=== PATIENT | female | born 1985 | race Two or more races ===

== ENCOUNTER 2022-04-09 23:14 | Emergency (ER) | payer BC ==
[~2022-04-09] VITALS: Ht 157.5 cm; Wt 56.7 kg
[2022-04-10 00:47] LABS: Urine Bacteria FEW /hpf (None Seen); Urine Blood Negative /uL (Negative); Urine Specific Gravity 1.002 (1.001-1.035); Urine WBC 9 /hpf (0 - 5)
[2022-04-10 01:42] LABS: Albumin 4.1 g/dL (3.4-5.0); BUN/Creatinine Ratio 18.9; Magnesium 2.3 mg/dL (1.6-2.6); Potassium 3.1 mmol/L (3.5-5.1)
[2022-04-10 01:45] LABS: Bilirubin, Total 0.5 mg/dL (0.2-1.0); Total Protein 7.9 g/dL (6.4-8.2)
[2022-04-10] MEDS ORDERED: NITR-87 PO (01:53)
[2022-04-10 02:14] LABS: Basophils # (auto) 0 10 ^3/uL (0-0.2); Basophils % (auto) 0.4 % (0.0-2.0); Eosinophils # (auto) 0.2 10 ^3/uL (0-0.8); Eosinophils % (auto) 1.8 % (0.0-7.0); Hematocrit 40.5 % (36.0-46.0); Hemoglobin 14.4 g/dL (12.2-16.2); Lymphocytes # (auto) 2.6 10 ^3/uL (0.4-5.4); Lymphocytes % (auto) 27.3 % (10.0-50.0); Mean Corpuscular Hemoglobin 29.8 pg (28.0-32.0); Mean Corpuscular Hgb Conc. 35.5 g/dL (32.0-36.0); Monocytes # (auto) 0.6 10 ^3/uL (0-1.3); Monocytes % (auto) 6.2 % (0.0-12.0); Neutrophils # (auto) 6.2 10 ^3/uL (1.6-8.6); Neutrophils % (auto) 64.3 % (37.0-80.0); Red Blood Cells 4.81 10^6/uL (4.0-5.20); Red Cell Distribution Width 12.5 % (11.8-14.3); White Blood Cell 9.6 10^3/uL (4.4-10.8)
[2022-04-10 02:15] VITALS: BP 139/86
[2022-04-10] MEDS ORDERED: POTASSIUM EFFERVESENT TAB 25 MEQ PO ONE (02:45)
== END 2022-04-10 03:33 | disposition home or self-care (01) ==
LOC: ER 23:14
DX: R07.89 Other chest pain (principal); N39.0 Urinary tract infection, site not specified; E87.6 Hypokalemia; I10 Essential (primary) hypertension
CPT/HCPCS: 36415; 80053; 81001; 83735; 83880; 84443; 84484; 85025; 93005

== ENCOUNTER 2022-04-20 18:12 | Emergency (ER) | payer BC, MEDICAID ==
[~2022-04-20] VITALS: Ht 157.5 cm; Wt 56.7 kg
[~2022-04-20 18:12] MED LIST: NITR-87 PO
[2022-04-20] MEDS ORDERED: ASPirin 81 mg TAB PO ONE (20:30)
[2022-04-20] MEDS ORDERED: cloNIDine HCL 0.1 MG TAB PO ONE ×2 (20:30)
[2022-04-20 20:51] LABS: Basophils # (auto) 0 10 ^3/uL (0-0.2); Basophils % (auto) 0.6 % (0.0-2.0); Eosinophils # (auto) 0 10 ^3/uL (0-0.8); Eosinophils % (auto) 0.3 % (0.0-7.0); Hematocrit 38.8 % (36.0-46.0); Hemoglobin 13.7 g/dL (12.2-16.2); Lymphocytes # (auto) 0.9 10 ^3/uL (0.4-5.4); Lymphocytes % (auto) 17.5 % (10.0-50.0); Mean Corpuscular Hemoglobin 29.8 pg (28.0-32.0); Mean Corpuscular Hgb Conc. 35.4 g/dL (32.0-36.0); Mean Corpuscular Volume 84.3 fL (80.0-100.0); Monocytes # (auto) 0.7 10 ^3/uL (0-1.3); Monocytes % (auto) 12.6 % (0.0-12.0); Neutrophils # (auto) 3.7 10 ^3/uL (1.6-8.6); Nucleated Red Blood Cells % 0.1 %; Red Cell Distribution Width 12.7 % (11.8-14.3); White Blood Cell 5.4 10^3/uL (4.4-10.8)
[2022-04-20 21:05] LABS: Albumin 3.8 g/dL (3.4-5.0); Calcium 8.4 mg/dL (8.5-10.1)
[2022-04-20 21:16] LABS: BUN/Creatinine Ratio 18.5; Bilirubin, Total 0.4 mg/dL (0.2-1.0); Total Protein 7.9 g/dL (6.4-8.2)
[2022-04-20 21:28] LABS: Potassium 2.5 mmol/L (3.5-5.1)
[2022-04-20] MEDS ORDERED: POTASSIUM CHL 20 Meq TABLET PO ONE (21:30)
[2022-04-20] MEDS ORDERED: POTA10TA51 PO (21:34)
[2022-04-20 22:33] LABS: Urine Bacteria NONE SEEN /hpf (None Seen); Urine Blood Negative /uL (Negative); Urine Specific Gravity 1.012 (1.001-1.035); Urine WBC 2 /hpf (0 - 5)
[2022-04-21] MEDS: POTASSIUM CHL 20MEQ/100ML 100 ML IV SCH ×2 (01:10→03:38)
[2022-04-21 07:00] VITALS: BP 110/70
== END 2022-04-21 07:24 | disposition home or self-care (01) ==
LOC: ER 18:12
DX: E87.6 Hypokalemia (principal); R11.2 Nausea with vomiting, unspecified; I16.0 Hypertensive urgency
CPT/HCPCS: 36415; 71046; 80053; 81001; 84484; 85025; 93005; 96365; 96366; 99285; J3480